=== PATIENT | male | born 1985 | race Caucasian/White ===

== ENCOUNTER 2021-05-07 18:34 | Emergency (ER) | payer BC ==
[~2021-05-07] VITALS: Ht 180.3 cm; Wt 95.5 kg
[~2021-05-07 18:34] MED LIST: CIPRO 500MG TA500 MG PO; LORTAB 5/500 501 TAB PO; NO HOME MEDICATIONS; NORCO 325 MG-51 TAB PO
[2021-05-07] MEDS ORDERED: PERCOCET 325 MG1 TA2 PO (22:16)
[2021-05-07 23:15] VITALS: BP 153/98; PULSE 79; TEMP 98.1
== END 2021-05-07 23:30 | disposition home or self-care (01) ==
LOC: COL.ER 18:34
DX: S43.004A Unspecified dislocation of right shoulder joint, initial encounter (principal); X58.XXXA Exposure to other specified factors, initial encounter
CPT/HCPCS: J2704; J3010